=== PATIENT | male | born 1940 | race Caucasian/White ===

== ENCOUNTER → 2016-08-05 | Outpatient (CLI) | payer OTHER, MEDICARE ==
[~2016-08-05] MED LIST: ASPIRIN325; ASPIRIN325 PO; B12INJ; CALCIUM 600 +1 EAC5 PO; CALCIUM 600 WI1 EACH PO; CALCIUM CITRAT1 EA14 PO; FINASTERIDE5 MG PO; FLAX SEED OIL1000 MG PO; FLAXSEED OIL1000 MG PO; FLOMAX PO; KEFLEX500 MG PO; MULTIVITAMINS PO; MULTIVITAMINS1 EAC7 PO; NORCO 5-325 TA1 EACH PO; TAMSULOSIN HCL0.4 MG PO; ZOCOR 20 MG TAB20 M1 PO; ZOCOR40 MG PO
--- NOTE | ~2016-08-05 | CATHLAB ---
[facility] [place] [address] INVASIVE PROCEDURE REPORT Name: LIZ TORRES JENNIFER Room #: [facility]#: [id number] Admission: 08/05/16 Attend Phys: Jaime Reyes, Discharge: Date of : 40 Date of Service: 08/05/16 0953 Report #: [id number] THIS REPORT FOR: //name// CC: Jaime Delgadillo PROCEDURE: Left heart coronary angiography. INDICATIONS: Chest pain, abnormal stress study. DESCRIPTION OF PROCEDURE: The potential benefits and risks of the procedure were discussed at length with the patient, who understood. Full written and informed consent was obtained. The patient was brought into the catheterization suite, where his right groin was prepped and draped in a sterile fashion. He was sedated with intravenous Versed and 1% Xylocaine was used as local anesthetic. A 6-Malagasy sheath was placed in the right femoral artery by the modified Seldinger technique. Left heart catheterization was performed with a 6-Malagasy angled pigtail catheter. A single plain ventriculogram was performed in the GORMAN view. Pullback gradients were measured across the aortic valve. Selective coronary angiography was performed with a 6-Malagasy left and right 4-cm Mumtaz coronary catheter. All diagnostic catheters were removed. Hand injection was performed to the right groin sheath with placement of a Mynx device upon removal of the sheath. The patient remained in excellent condition at the conclusion of the procedure, with good right groin hemostasis and intact distal pulses. RESULTS: LEFT HEART HEMODYNAMICS: 1. Left ventricular systolic pressure 160. 2. Left ventricular end-diastolic pressure of 12. 3. Aortic valve: No gradient was present on pullback across the aortic valve. Central aortic pressure 160/50. ANGIOGRAPHY: LEFT VENTRICULOGRAM: Ventriculography demonstrated normal global and regional left ventricular systolic function. Ejection fraction was estimated at 65%. Mitral regurgitation was absent. SELECTIVE CORONARY ANGIOGRAPHY: 1. Left main: Left main was normal. 2. Left anterior descending: The left anterior descending was a moderate-sized vessel that extended to the inferior apex of the LAD and 2 ghuue-wk-vhibzyjx sized diagonal branches were angiographically normal. 3. Circumflex: Circumflex was large, but nondominant and comprised of a distally arising marginal branch. Circumflex and this marginal branch were normal. 4. The right coronary: The right coronary was normal including a large [facility] [address] [place] [address] INVASIVE PROCEDURE REPORT Name: LIZ TORRES JENNIFER Room #: REG CL [facility]#: [id number] Admission: 08/05/16 Attend Phys: Jaime Reyes, Discharge: Date of : 40 Date of Service: 08/05/16 0953 Report #: [id number] posterior descending branch. SUMMARY: 1. Normal global and regional left ventricular systolic function. Mitral regurgitation was absent. 2. Normal left main. 3. Normal coronary vasculature. This was a right coronary dominant circulation. <ELECTRONICALLY SIGNED> By: Jaime Reyes MD, FACC 08/06/16 0834 0953 [id number] Jaime Reyes MD, FAC /nt
== END | disposition home or self-care (01) ==
LOC: CATH 06:39
DX: R07.9 Chest pain, unspecified (principal); R94.31 Abnormal electrocardiogram [ECG] [EKG]; E78.5 Hyperlipidemia, unspecified; I82.409 Acute embolism and thrombosis of unspecified deep veins of unspecified lower extremity; N40.0 Benign prostatic hyperplasia without lower urinary tract symptoms

== ENCOUNTER → 2016-08-11 | Outpatient (CLI) | payer OTHER, MEDICARE | LOC: CAT 10:21 | DX: R93.1 Abnormal findings on diagnostic imaging of heart and coronary circulation (principal) ==

== ENCOUNTER → 2019-09-12 | Outpatient (CLI) | payer MEDICARE | LOC: SJCVC 10:16 | DX: R94.31 Abnormal electrocardiogram [ECG] [EKG] (principal); I10 Essential (primary) hypertension; E78.5 Hyperlipidemia, unspecified; R07.89 Other chest pain; M19.90 Unspecified osteoarthritis, unspecified site; Z79.82 Long term (current) use of aspirin; Z79.899 Other long term (current) drug therapy ==

== ENCOUNTER → 2020-03-02 | Outpatient (CLI) | payer OTHER | LOC: CAT 10:52 | PROVIDERS: ATTEND Internal Medicine | DX: R51 Headache (principal) ==

== ENCOUNTER 2020-03-05 12:45 | Emergency (ER) | payer OTHER ==
[~2020-03-05] VITALS: Ht 177.8 cm; Wt 79.4 kg
[2020-03-05 14:15] LABS: HEMATOCRIT 40.1 % (42.0-52.0); HEMOGLOBIN 13.8 gm/dL (14.0-18.0); MCH 30.4 pg (26.0-34.0); MCHC 34.4 g/dL (28.0-37.0); MCV 88.3 fL (80.0-100.0); PLATELET COUNT 251 thou/uL (150-400); RBC 4.55 mil/uL (4.50-6.00); RDW 13.7 % (10.5-14.5); WBC 5.3 thou/uL (4.0-11.0)
[2020-03-05 14:16] LABS: URINE BILIRUBIN NEGATIVE (Negative); URINE BLOOD NEGATIVE (Negative); URINE CLARITY CLEAR; URINE COLOR YELLOW; URINE GLUCOSE-RANDOM* NEGATIVE (Negative); URINE KETONES NEGATIVE (Negative); URINE LEUKOCYTES-REFLEX NEGATIVE (Negative); URINE NITRITE-REFLEX NEGATIVE (Negative); URINE PROTEIN (DIPSTICK) NEGATIVE (Negative); URINE SPECIFIC GRAVITY <= 1.005 (1.005-1.035)
[2020-03-05 14:24] LABS: CALCIUM 8.8 mg/dL (8.5-10.1); CREATININE 1.4 mg/dL (0.7-1.3); POTASSIUM 3.8 mmol/L (3.5-5.1)
[2020-03-05 14:28] LABS: ALBUMIN 3.8 g/dL (3.4-5.0); DIRECT BILIRUBIN 0.1 mg/dL (<0.1-0.2); TOTAL BILIRUBIN 0.6 mg/dL (0.2-1.0); TOTAL PROTEIN 7.2 g/dL (6.4-8.2)
[2020-03-05 14:59] LABS: ABSOLUTE NEUTROPHILS 2.8 thou/uL (1.4-8.2); PLATELET ESTIMATE NORMAL
[2020-03-05 16:56] VITALS: BP 131/75
--- NOTE | 2020-03-06 07:49 | EKG ---
[facility] [place] [address] ELECTROCARDIOGRAM REPORT Name: LIZ TORRES JENNIFER Room #: [facility]#: [id number] Admission: 03/05/20 Attend Phys: Discharge: 03/05/20 Date of : 40 Report #: [id number] THIS REPORT FOR: cc: Isi Cook MD, Melanie MD Lundgren,Jaime Casiano MD [facility] THIS REPORT FOR: //name// [facility] ED Test Date: 2020-03-05 Test Time: 12:58:27 Pat Name: LIZ TORRES Department: Room: Gender: Marketing Summer Intern: [facility] : 1940 Requested By: Trinh Coleman Order Number: [id number] MD: Jaime Reyes Measurements Intervals [place] Rate: 55 P: 38 AK: 202 QRS: 51 QRSD: 79 T: 97 QT: 442 QTc: 423 Interpretive Statements Sinus rhythm Ventricular premature complex Consider left ventricular hypertrophy Nonspecific T abnormalities, lateral leads No previous ECG available for comparison Electronically Signed On 03-06-2020 7:49:01 CDT by Jaime Reyes [email or web address] <ELECTRONICALLY SIGNED> By: Jaime Reyes MD, FACC 03/06/20 0749 [id number] [id number] Jaime Reyes MD, [facility] /EPI
== END 2020-03-05 16:57 | disposition home or self-care (01) ==
LOC: ER 12:45
PROVIDERS: Emergency Medicine
DX: I95.1 Orthostatic hypotension (principal); R42 Dizziness and giddiness; R50.9 Fever, unspecified; M79.10 Myalgia, unspecified site; Z79.899 Other long term (current) drug therapy; Z79.82 Long term (current) use of aspirin

== ENCOUNTER → 2020-04-04 | Outpatient (CLI) | payer OTHER | LOC: SJCVC 12:05 | PROVIDERS: ATTEND Internal Medicine | DX: R94.31 Abnormal electrocardiogram [ECG] [EKG] (principal); I10 Essential (primary) hypertension; E78.5 Hyperlipidemia, unspecified; I65.23 Occlusion and stenosis of bilateral carotid arteries; Z79.899 Other long term (current) drug therapy ==

== ENCOUNTER → 2020-10-03 | Outpatient (CLI) | payer OTHER | LOC: SJCVC 11:03 | PROVIDERS: ATTEND Internal Medicine | DX: R94.31 Abnormal electrocardiogram [ECG] [EKG] (principal); R00.1 Bradycardia, unspecified; I11.9 Hypertensive heart disease without heart failure; E78.5 Hyperlipidemia, unspecified; I65.23 Occlusion and stenosis of bilateral carotid arteries; M19.90 Unspecified osteoarthritis, unspecified site; Z79.899 Other long term (current) drug therapy; Z79.82 Long term (current) use of aspirin; Z88.1 Allergy status to other antibiotic agents; Z86.16 Personal history of COVID-19; Z86.718 Personal history of other venous thrombosis and embolism; Z88.8 Allergy status to other drugs, medicaments and biological substances ==

== ENCOUNTER → 2021-04-03 | Outpatient (CLI) | payer OTHER | LOC: SJCVC 15:14 | PROVIDERS: ATTEND Internal Medicine | DX: I44.0 Atrioventricular block, first degree (principal); R94.31 Abnormal electrocardiogram [ECG] [EKG]; I11.9 Hypertensive heart disease without heart failure; E78.5 Hyperlipidemia, unspecified; I65.23 Occlusion and stenosis of bilateral carotid arteries; M19.90 Unspecified osteoarthritis, unspecified site; Z86.16 Personal history of COVID-19; Z79.82 Long term (current) use of aspirin; Z79.899 Other long term (current) drug therapy; Z88.1 Allergy status to other antibiotic agents ==

== ENCOUNTER → 2021-09-18 | Outpatient (CLI) | payer OTHER | LOC: SJCVC 13:27 | PROVIDERS: ATTEND Nuclear Medicine Nuclear Cardiology | DX: M80.08XA Age-related osteoporosis with current pathological fracture, vertebra(e), initial encounter for fracture (principal); M54.6 Pain in thoracic spine; E78.2 Mixed hyperlipidemia; I77.9 Disorder of arteries and arterioles, unspecified; I10 Essential (primary) hypertension; Z88.8 Allergy status to other drugs, medicaments and biological substances; Z79.899 Other long term (current) drug therapy; Z79.82 Long term (current) use of aspirin; Z86.16 Personal history of COVID-19; Z82.49 Family history of ischemic heart disease and other diseases of the circulatory system; X58.XXXA Exposure to other specified factors, initial encounter; Y93.89 Activity, other specified; Y92.89 Other specified places as the place of occurrence of the external cause; Y99.8 Other external cause status ==